=== PATIENT | male | born 1975 | race Caucasian/White ===

== ENCOUNTER 2019-01-28 08:45 | Emergency (ER) | payer MEDICAID ==
[~2019-01-28] VITALS: Ht 180.3 cm; Wt 96.5 kg
[2019-01-28] MEDS ORDERED: famotidine 20mg tablet PO ONE (09:15)
[2019-01-28] MEDS ORDERED: LIDOcaine Viscous 15ml cup PO ONE (09:15)
[2019-01-28] MEDS ORDERED: mag hydrox/Alum hydrox/simeth 30ml oral suspension PO ONE (09:15)
[2019-01-28 09:47] VITALS: BP 155/90
== END 2019-01-28 09:49 | disposition home or self-care (01) ==
LOC: ER 08:45
DX: T54.91XA Toxic effect of unspecified corrosive substance, accidental (unintentional), initial encounter (principal); Y92.89 Other specified places as the place of occurrence of the external cause
CPT/HCPCS: 99283; 99284

== ENCOUNTER 2021-04-03 14:34 | Emergency (ER) | payer MEDICAID ==
[~2021-04-03] VITALS: Ht 180.3 cm; Wt 84.1 kg
[2021-04-03 14:39] VITALS: BP 150/118
[2021-04-03] MEDS ORDERED: AMOX-422 PO (15:59)
== END 2021-04-03 16:14 | disposition home or self-care (01) ==
LOC: ER 14:34
DX: H72.92 Unspecified perforation of tympanic membrane, left ear (principal); Z79.2 Long term (current) use of antibiotics
CPT/HCPCS: 87070; 87077; 87186; 99283